=== PATIENT | male | born 1975 | race Caucasian/White ===

== ENCOUNTER 2021-11-27 20:58 | Emergency (ER) | payer OTHER ==
[~2021-11-27] VITALS: Ht 188 cm; Wt 95.3 kg
[2021-11-27] MEDS ORDERED: amLODIPine BESYLATE 5 MG TAB PO ONE (21:15)
[2021-11-27 22:46] VITALS: BP 151/92
== END 2021-11-27 22:47 | disposition home or self-care (01) ==
LOC: ER 20:58
DX: I10 Essential (primary) hypertension (principal)